=== PATIENT | female | born 1950 | race Caucasian/White ===

== ENCOUNTER → 2017-07-08 16:40 | Outpatient (CLI) | payer MEDICARE, OTHER, SELFPAY ==
--- NOTE | 2017-07-08 | MM_ITS ---
MM Dig SC mamm unilat RT CAD CAD Screening ORDERING PHYSICIAN : Giovanni Toscano PATIENT AGE: 66 years GENDER: Female COMPARISON: Previous mammograms: April 2016, December 2014, November 2013, June 2011 also May 2010 INDICATION: Left mastectomy Routine follow-up screening mammogram. No hormones. No new complaints Family history.: Mother and sister with breast cancer TECHNIQUE: Standard CC and MLO images were obtained. R2 CAD reviewed. FINDINGS: Left mastectomy with Moderate dense breast density at remaining right breast. Slightly decreases sensitivity of mammography RIGHT BREAST:. No prominent findings. No definitive new findings. Area of density at the deep central right breast is fairly similar to 2014 & in 2012 cc view. This feature also becomes lower density & dissipates on the axillary view & MLO view and favor most likely stable asymmetric fibroglandular elements & summation shadow.. I believe it is a stable] feature evaluate previously,, but feature but because the positive personal and family history suggest a follow-up right mammogram in 5-6 months to fully confirm stability to be cautious IMPRESSION: Moderately dense breast . No prominent new findings . Modest focal area of density density at the deep breast on cc views most likely stable feature and seems seems to dissipate on other views. Doubt of significance but be cautious in this patient with strong history, suggest a follow-up right mammogram in 5-6 months to better confirm stable baseline character here. Desiccation reviewed the radiologist prior patiently department as well BI-RADS Category: 3 Benign Finding Short Term Follow-up RECOMMENDED FOLLOW-UP: 6M - 6 MONTH FOLLOW-UP, 5-6 MONTH FOLLOW-UP (A letter has been sent to the patient regarding results of the study.)
== END ==
PROVIDERS: PCP Family Medicine; Visit Provider Family Medicine
DX: Z12.31 Encounter for screening mammogram for malignant neoplasm of breast (principal)
CPT/HCPCS: 77067

== ENCOUNTER → 2019-11-07 17:36 | Outpatient (CLI) | payer MEDICARE, OTHER, SELFPAY | PROVIDERS: Visit Provider Family Medicine | DX: N39.0 Urinary tract infection, site not specified (principal) | CPT/HCPCS: 87086 ==

== ENCOUNTER → 2022-01-13 10:19 | Outpatient (CLI) | payer MEDICARE, OTHER, SELFPAY ==
[2022-01-13 19:25] LABS: Basophils # 0.1 K/mm3 (0-0.2); Basophils % 1.2 % (0.1-2.0); Eosinophils # 0.1 K/mm3 (0.0-0.4); Eosinophils % 1.4 % (0.1-12.0); Hematocrit 42.2 % (37.0-47.0); Hemoglobin 14.3 g/dL (12.2-16.2); Lymphocytes # 1.6 K/mm3 (0.7-4.5); Lymphocytes % 27.4 % (10-50); Mean Corpuscular HGB Conc 33.8 g/dL (31.8-35.4); Mean Corpuscular Hemoglobin 31.8 pg (27.0-31.2); Mean Corpuscular Volume 94.2 fl (81-99); Mean Platelet Volume 9.5 fl (7.4-10.4); Monocytes # 0.6 K/mm3 (0.1-1.0); Monocytes % 9.7 % (1.7-9.3); Neutrophils # 3.5 K/mm3 (1.8-7.8); Neutrophils % 60.3 % (37.0-80.0); Platelet Count 220 K/mm3 (142-424); Red Blood Count 4.48 M/mm3 (4.20-5.40); Red Cell Distribution Width 13.3 % (11.5-17.5); White Blood Count 5.7 K/mm3 (4.8-10.8)
[2022-01-13 19:26] LABS: Alanine Aminotransferase 31 U/L (12-78); Albumin/Globulin Ratio 1.6 (1.1-1.8); Alkaline Phosphatase 90 U/L (38-126); Anion Gap 12.1 mEq/L (5-15); Aspartate Amino Transferase 33 U/L (14-36); Bilirubin,Total 0.3 mg/dl (0.2-1.3); Blood Urea Nitrogen 23 mg/dl (7-17); Calcium 9.1 mg/dl (8.4-10.2); Carbon Dioxide 27 mmol/L (22.0-30.0); Chloride 104 mmol/L (98-107); Chol/HDL Ratio 5.9 (1-3.5); Cholesterol 226 mg/dl (140-200); Estimated Glomerular Filt Rate 82 ml/min (>60); GFR (African American) 99 ML/MIN (>60); Globulin 2.5 g/dL (1.3-3.2); Glucose 121 mg/dl (74-100); HDL Cholesterol 38 mg/dl (40-60); Potassium 4.1 mmoL/L (3.5-5.1); Sodium 139 mmol/L (136-145); Total Protein,Serum 6.5 g/dl (6.3-8.2); Triglycerides 362 mg/dl (30-150); VLDL Cholesterol 72 mg/dL (0-40)
[2022-01-13 19:36] LABS: Direct LDL Cholesterol 121.82 mg/dL (100-129)
== END ==
PROVIDERS: PCP Family Medicine; Visit Provider Family Medicine
DX: S32.599A Other specified fracture of unspecified pubis, initial encounter for closed fracture (principal); Z00.00 Encounter for general adult medical examination without abnormal findings; E78.00 Pure hypercholesterolemia, unspecified
CPT/HCPCS: 80053; 80061; 85025

== ENCOUNTER → 2022-08-20 20:58 | Outpatient (CLI) | payer MEDICARE, OTHER, SELFPAY | PROVIDERS: PCP Family Medicine; Visit Provider Family Medicine | DX: R30.0 Dysuria (principal) | CPT/HCPCS: 87086 ==

== ENCOUNTER → 2023-01-29 23:42 | Outpatient (CLI) | payer MEDICARE, OTHER, SELFPAY ==
[2023-01-29 19:36] LABS: Basophils % 0.5 % (0.1-2.0); Eosinophils # 0.1 K/mm3 (0.0-0.4); Eosinophils % 0.9 % (0.1-12.0); Hematocrit 42.3 % (37.0-47.0); Hemoglobin 14.9 g/dL (12.2-16.2); Lymphocytes # 1.8 K/mm3 (0.7-4.5); Lymphocytes % 28.5 % (10-50); Mean Corpuscular HGB Conc 35.2 g/dL (31.8-35.4); Mean Corpuscular Hemoglobin 33.4 pg (27.0-31.2); Mean Corpuscular Volume 94.9 fl (81-99); Mean Platelet Volume 10.3 fl (7.4-10.4); Monocytes # 0.5 K/mm3 (0.1-1.0); Monocytes % 7.3 % (1.7-9.3); Neutrophils # 3.9 K/mm3 (1.8-7.8); Neutrophils % 62.8 % (37.0-80.0); Platelet Count 204 K/mm3 (142-424); Red Blood Count 4.46 M/mm3 (4.20-5.40); Red Cell Distribution Width 13.3 % (11.5-17.5); White Blood Count 6.2 K/mm3 (4.8-10.8)
[2023-01-29 20:52] LABS: Chloride 105 mmol/L (98-107)
[2023-01-29 20:53] LABS: Potassium 4.4 mmoL/L (3.5-5.1); Sodium 140 mmol/L (136-145)
[2023-01-29 20:55] LABS: Alanine Aminotransferase 33 U/L (12-78); Albumin Level 4.6 g/dl (3.5-5.0); Albumin/Globulin Ratio 1.8 (1.1-1.8); Alkaline Phosphatase 75 U/L (38-126); Anion Gap 12.4 mEq/L (5-15); Aspartate Amino Transferase 31 U/L (14-36); Bilirubin,Total 0.2 mg/dl (0.2-1.3); Blood Urea Nitrogen 18 mg/dl (7-17); Carbon Dioxide 27 mmol/L (22.0-30.0); Cholesterol 239 mg/dl (140-200); Estimated Glomerular Filt Rate 70 ml/min (>60); GFR (African American) 85 ML/MIN (>60); Globulin 2.6 g/dL (1.3-3.2); Total Protein,Serum 7.2 g/dl (6.3-8.2); Triglycerides 227 mg/dl (30-150); VLDL Cholesterol 45 mg/dL (0-40)
[2023-01-29 20:56] LABS: Calcium 9.1 mg/dl (8.4-10.2); Chol/HDL Ratio 5.7 (1-3.5); Glucose 104 mg/dl (74-100); HDL Cholesterol 42 mg/dl (40-60)
[2023-01-29 21:07] LABS: Direct LDL Cholesterol 138.93 mg/dL (100-129)
[2023-01-29 21:30] LABS: Thyroid Stimulating Hormone 0.39 uIU/mL (0.465-4.68)
== END ==
PROVIDERS: Family Medicine; PCP Family Medicine; Visit Provider Family Medicine
DX: S32.599A Other specified fracture of unspecified pubis, initial encounter for closed fracture (principal); Z00.00 Encounter for general adult medical examination without abnormal findings; E78.5 Hyperlipidemia, unspecified; Z79.899 Other long term (current) drug therapy
CPT/HCPCS: 80053; 80061; 84443; 85025

== ENCOUNTER 2023-07-08 10:55 | Outpatient (CLI) | payer MEDICARE, OTHER, SELFPAY ==
[2023-07-08 18:25] LABS: Coronavirus 19, PCR Not Detected (NotDetected); Influenza A, PCR Not Detected (NotDetected); Influenza B, PCR Not Detected (NotDetected)
== END 2023-07-08 23:59 ==
LOC: LAB.DROPOF 07-09 10:55
PROVIDERS: PCP Nurse Practitioner; Visit Provider Nurse Practitioner
DX: J06.9 Acute upper respiratory infection, unspecified (principal); R05.9 Cough, unspecified; R06.2 Wheezing; R09.82 Postnasal drip
CPT/HCPCS: 87636

== ENCOUNTER 2024-10-12 11:50 | Outpatient (CLI) | payer MEDICARE, OTHER, SELFPAY ==
--- OUTSIDE RECORDS SUMMARY | 2024-10-16 11:52 | XMS_ITS | Clinical Summary ---
Author Organization [facility] Address [address] [place] [address] Care Team Providers Care Retail Wireless Sales Representative Name Role Phone Kavin Toscano MD Primary Care Provider [phone] Carlos Lala MD Unavailable [phone] Pat Liu RN Unavailable [phone] Allergies Active Allergy Reactions Criticality Noted Date Comments Sulfamethoxazole-Trimethoprim 2021 Ciprofloxacin 07/23/2021 Contact Metal Agent 07/23/2021 Medications amitriptyline (ELAVIL) 25 mg tablet TAKE 1/2 TO 1 (ONE-HALF TO ONE) TABLET BY MOUTH AT NIGHT TO SUSTAIN SLEEP 06/02/2021 Active eszopiclone (LUNESTA) 3 mg Tablet TAKE 1 TABLET BY MOUTH EVERY DAY AT BEDTIME NEEDED FOR SLEEP 06/03/2021 Active Active Problems Problem Noted Date Diagnosed Date Malignant neoplasm of upper- outer quadrant of left breast in female, estrogen receptor positive 05/06/2005 Cancer Staging:Clinical stage from 05/11/2005:Stage IIA(cT2, cN0(sn), cM0, G2, ER+, IN-, HER2-) - Signed by Carlos Lala MD on 07/23/2021 Social History Tobacco Use Types Packs/Day Years Used Date Smoking Tobacco: Never Smokeless Tobacco: Never Tobacco Cessation:Counseling Given: Yes Alcohol Use Standard Drinks/Week Comments Never 0 (1 standard drink = 0.6 oz pur e alcohol) Comments No Sex and Gender Information Value Date Recorded Sex Assigned at Not on file Legal Sex Female 10:58 AM EST Gender Identity Not on file Sexual Orientation Not on file Last Filed Vital Signs Vital Sign Reading Time Taken Comments Blood Pressure 132/77 11/03/2023 12:12 PM EDT Pulse 86 11/03/2023 12:12 PM EDT Temperature 36.6 C (97.8 F) 11/03/2023 12:12 PM EDT Respiratory Rate 16 11/03/2023 12:1 2 PM EDT Oxygen Saturation 98% 11/03/2023 12: 12 PM EDT Inhaled Oxygen Concentration - - Weight 59.4 kg (131 lb) 11/03/2023 12:1 2 PM EDT Height 159.5 cm (5' 2.8 ) 11/03/2023 12 :12 PM EDT got Ht with no shoes on Body Mass Index 23.36 11/03/2023 12:12 PM EDT Plan of Treatment Upcoming Encounters Date Type Department Care Team (Late st Contact Info) Description 11/01/2024 12:40 PM EDT Appointment [facility] - Hematology & Oncology, [place] [address] [facility] [address] [place] [address] Carlos Lala MD [address] [facility] [place], [place] [address] Health Maintenance Due Date Last Done Comments Lipid Screening 1966 Hepatitis C Virus (HCV) Screening 1969 Pneumococcal Vaccine: 50+ Ye ars (1 of 1 - PCV) 1998 Fall Risk Assessment 2013 Zoster-RZV(Shingrix) (2 of 2) 02/18/2023 12/24/2022 RSV Vaccines (1 - 1-dose 75+ series) 09/01/2023 COVID-19 Vaccine ( - 2023-2 5 season) 2023 Advance Care Planning 03/22/2024 Depression Screening 03/22/2024 Influenza Vaccination (#1) 11/20/202401/29, 01/27/2022, 03/02/2021, Additional history exists Tetanus Vaccination (Every 1 0 Years) 01/05/2027 01/05/2017 Osteoporosis Screening 04/14/2028 , 04/14/2023, 06/02/2019, Additional history exists Breast Cancer Screening Discontinued 02/07/20 22, 02/06/2022, 01/16/2021, Additional history exists Influenza Vaccination (Yearly) Discontinued 1 03/31/2022, 01/27/2022, 03/02/2021, Additional history exists Procedures Procedure Name Priority Date/Time Associated Diagnosis Comments SVB-MCK-[id number] IS SCREENING Routine 02/06/2022 11:09 AM EST KIV-BMEO-CIN SCAN AXIAL SKELETON Routine 03/18/2015 11:10 AM EST from Last 3 Months or Most Recently Relevant to Health Maintenance Results * MCG-PMM-[id number] SCREENING (02/06/2022 11:09 AM EST) 02/06/2022 11:[address] [facility] - 02/06/2022 12:51 PM EST Procedure:MM MAMMO DIGITAL GERMAN SCREEN RIGHT Reason for exam: history of breast cancer, mastectomy. Z12.31-Encounter for screening mammogram for malignant neoplasm of jfptwf-VXQ-57-CM MM MAMMO DIGITAL GERMAN SCREEN RIGHT CC and MLO view(s) were taken of the right breast. The breast tissue is heterogeneously dense. This may lower the sensitivity of mammography. Prior study comparison: Compared with prior studies the most recent being 01/16/21, 12/05/19 Prior left mastectomy. No mammographic evidence of malignancy. IMPRESSION: Negative (FRI-Nwqgcmlk-5) RECOMMENDATION: Routine screening mammogram in 1 year. DISCLAIMER * Any patient with a palpable abnormality, unexplained by breast imaging, should be managed on clinical basis by the attending physician. * Breast imaging has a false negative rate of 15%. * The patient was notified by mail of the results of this examination. *The patient's information was entered into a reminder system with a target due date for the next mammogram, in accordance with the [employer] [place] [employer] and the Society of Breast Imaging recommendations. Procedure Note Provider, Dakot[facility] - 02/06/2022 Procedure:MM MAMMO DIGITAL GERMAN SCREEN RIGHT Reason for exam: history of breast cancer, mastectomy. Z12.31-Encounter for screening mammogram for malignant neoplasm of ixjvze-GZI-44-CM MM MAMMO DIGITAL GERMAN SCREEN RIGHT CC and MLO view(s) were taken of the right breast. The breast tissue is heterogeneously dense. This may lower the sensitivity of mammography. Prior study comparison: Compared with prior studies the most recentbeing 01/16/21, 12/05/19 Prior left mastectomy. No mammographic evidence of malignancy. IMPRESSION: Negative (CJK-Annwtypg-2) RECOMMENDATION: Routine screening mammogram in 1 year. DISCLAIMER * Any patient with a palpable abnormality, unexplained by breast imaging, should be managed on clinical basis by the attending physician. * Breast imaging has a false negative rate of 15%. * The patient was notified by mail of the results of this examination. *The patient's information was entered into a reminder system with a target due date for the next mammogram, in accordance with the [employer] [place] [employer] and the Society of Breast Imaging recommendations. us External Provider [facility]AKOT[facility] IMG RESULTS ONLY Final Result [facility] * FDB-ITSR-SNZ SCAN AXIAL SKELETON (03/18/2015 11:10 AM EST) 03/18/2015 11:[address] [facility] - 03/20/2015 2:21 PM EST Indication: The patient is a post-menopausal female over age 65 with clinical risk factors for an osteoporotic fracture that requires a bone density assessment. Study was performed on [place]. Bone Density: Region BMD T-score Z-score AP Spine (L1-L4) 0.846 -1.8 0.0 Femoral Neck (Left) 0.643 -1.9 -0.3 Total Hip (Left) 0.748 -1.6 -0.3 Femoral Neck (Right) 0.591 -2.3 -0.7 Total Hip (Right) 0.716 -1.9 -0.5 World Health Organization criteria for BMD interpretation classify patients as: Normal (T-score at or above -1.0), Low Bone Density (T-score between -1.0 and -2.5), or Osteoporotic (T-score at or below -2.5). T Scores are reported in Postmenopausal women and in men age 50 and older. Z-scores are reported in females prior to menopause and in males younger than age 50. 10-year Fracture Risk(1): Major Osteoporotic Fracture 11% Hip Fracture 2.1% Reported Risk Factors: [place] (), Neck BMD=0.591, BMI=20.2 (1) FRAX(R) Version 3.01. Fracture probability calculated for an untreated patient. Fracture probability may be lower if the patient has received treatment. Previous Exams: Region Date Age BMD T-score BMD Change AP Spine(L1-L4) 03/18/2015 64 0.846 -1.8 5.3%* 01/23/2013 62 0.803 -2.2 Total Hip(Left) 03/18/2015 64 0.748 -1.6 -0.1% 01/23/2013 62 0.749 -1.6 1.1% 11/10/2010 60 0.741 -1.6 -3.4%# 11/10/2010 60 0.767 -1.4 1.4%# 11/12/2008 58 0.756 -1.5 4.1%* 05/11/2006 55 0.726 -1.8 *Denotes significance at 95% confidence level, site specific LSC for AP Spine = 0.031 g/cm2, site specific LSC for Total Hip = 0.025 g/cm2 BMD is shown in g/cm2 and BMD Change indicates change vs previous BMD Clinical Information Provided by Patient: Has used the following medications: Calcium, Aromatase Inhibitors, Vitamin D, Chemotherapy drugs, arimedex Patient maximum height was 64 Post menopausal woman Has low body mass. Interpretation: Bone mineral density is in the low bone density range. A minimum of two years may be required between bone density studies due to inherent testing precision limitations. Intervals between BMD testing should be determined according to each patient's clinical status: typically one year after initiation or change of therapy is appropriate, with longer intervals once therapeutic effect is established. The spine bone mineral density is significantly increased from the last exam. The left hip bone mineral density is not significantly changed since last exam. Reported by: Marlene Lomeli PA-C, [facility], CCD on 03/18/2015 12:32:00 PM. Procedure Note Provider, External - 03/21/2015 Indication: The patient is a post-menopausal female over age 65 with clinical risk factors for an osteoporotic fracture that requires a bone density assessment. Study was performed on [place]. Bone Density: Region BMD T-score Z-score AP Spine (L1-L4) 0.846 -1.8 0.0 Femoral Neck (Left) 0.643 -1.9 -0.3 Total Hip (Left) 0.748 -1.6 -0.3 Femoral Neck (Right) 0.591 -2.3 -0.7 Total Hip (Right) 0.716 -1.9 -0.5 World Health Organization criteria for BMD interpretation classify patients as: Normal (T-score at or above -1.0), Low Bone Density (T-score between -1.0 and -2.5), or Osteoporotic (T-score at or below -2.5). T Scores are reported in Postmenopausal women and in men age 50 and older. Z-scores are reported in females prior to menopause and in males younger than age 50. 10-year Fracture Risk(1): Major Osteoporotic Fracture 11% Hip Fracture 2.1% Reported Risk Factors: [place] (), Neck BMD=0.591, BMI=20.2 (1) FRAX(R) Version 3.01. Fracture probability calculated for an untreated patient. Fracture probability may be lower if the patient has received treatment. Previous Exams: Region Date Age BMD T-score BMD Change AP Spine(L1-L4) 03/18/2015 64 0.846 -1.8 5.3%* 01/23/2013 62 0.803 -2.2 Total Hip(Left) 03/18/2015 64 0.748 -1.6 -0.1% 01/23/2013 62 0.749 -1.6 1.1% 11/10/2010 60 0.741 -1.6 -3.4%# 11/10/2010 60 0.767 -1.4 1.4%# 11/12/2008 58 0.756 -1.5 4.1%* 05/11/2006 55 0.726 -1.8 *Denotes significance at 95% confidence level, site specific LSC for AP Spine = 0.031 g/cm2, site specific LSC for Total Hip = 0.025 g/cm2 BMD is shown in g/cm2 and BMD Change indicates change vs previous BMD Clinical Information Provided by Patient: Has used the following medications: Calcium, Aromatase Inhibitors, Vitamin D, Chemotherapy drugs, arimedex Patient maximum height was 64 Post menopausal woman Has low body mass. Interpretation: Bone mineral density is in the low bone density range. A minimum of two years may be required between bone density studies due to inherent testing precision limitations. Intervals between BMD testing should be determined according to each patient's clinical status: typically one year after initiation or change of therapy is appropriate, with longer intervals once therapeutic effect is established. The spine bone mineral density is significantly increased from the last exam. The left hip bone mineral density is not significantly changed since last exam. Reported by: Marlene Lomeli PA-C, [facility], CCD on 03/18/2015 12:32:00 PM. us Carlos Lala MD [facility] IMG RESULTS ONL Y Final Result [facility] from Last 3 Months or Most Recently Relevant to Health Maintenance Insurance MEDICARE MEDICARE [facility] Care Teams Retail Wireless Sales Representative Relationship Specialty Start Date End Date Kavin Toscano MD PCP - General Family Medicine 02/21/15 Carlos Lala MD [address] [place] [address] Covering Provider Hematology and Oncology 06/19/21 Pat Liu, RN [address] [place] [address] Oncology Nurse Navigator 06/19/21
--- OUTSIDE RECORDS SUMMARY | 2024-10-16 11:52 | XMS_ITS | Clinical Summary ---
Author Organization [id number] Address [address], [address] [place] [address] Care Team Providers Care Hyperbaric Nurse Name Role Phone Kavin Toscano MD Primary Care Provider [phone] Allergies No known active allergies Active Problems Patient Care Coordination No te Formatting of this note migh t be different from the original. BRENDON [id number] 08/24/17 Problem Noted Date Diagnosed Date Closed displaced fracture of ilium with routine healing 08/23/2017 Insomnia, persistent 08/23/2017 Constipation due to opioid therapy 08/23/2017 Peripheral neuropathy due to chemotherapy 2017 Personal history of malignant neoplasm of breast 05/31/2015 Family history of malignant neoplasm of breast 0 05/31/2015 Medical History Medical History Date Comments Breast cancer (HCC) left mastect jayshree - 2007 History of chemotherapy 2007 Hx of radiation therapy 2006 Family History Medical History Relation Name Comments Breast Cancer Mother Breast Cancer Sister Relation Name Status Comments Mother Sister Social History Tobacco Use Types Packs/Day Years Used Date Smoking Tobacco: Never Assessed Comments No Sex and Gender Information Value Date Recorded Sex Assigned at Not on file Legal Sex Female 7:23 PM EDT Gender Identity Not on file Sexual Orientation Not on file Obstetrics History Para Term AB IAB SAB Ectopic Multiple Livin g Live Births 3 Plan of Treatment Health Maintenance Due Date Last Done Comments Wellness Exam Medicare 09/01/1953 Hepatitis C Screening 1966 DTaP/TDaP/Td (1 - Tdap) 01/06/2017 01/05/2017, 05/25 Pneumococcal Vaccine 50+ (2 of 2 - PCV20 or PCV21) 01/05/2018 01/05/2017, 04/10/2016 Zoster (3 of 3) 02/18/2023 12/24/2022, 02/22/2009 RSV or 60+ (1 - 1-dose 75+ series) 09/01/2023 COVID-19 Vaccine (1 - 2023- season) 2023 Influenza Vaccine (#1) 2024 4, 01/29/2023, 01/27/2022, Additional history exists Bone Density Screening Completed 4, 06/02/2019, 03/18/2015, Additional history exists Hepatitis B Vaccine Aged Out No longe r eligible based on patient's age to complete this topic Meningococcal B Vaccine Aged Out No l onger eligible based on patient's age to complete this topic Procedures Procedure Name Priority Date/Time Associated Diagnosis Comments DX BONE DENSITY AXIAL SKELETON Routine 04/14/2023 1:26 PM EST Age related osteoporosis, unspecified pathological fracture presence from Last 3 Months or Most Recently Relevant to Health Maintenance Results * DX BONE DENSITY AXIAL SKELETON (04/14/2023 1:26 PM EST) Anatomical Region Laterality Modality Dexa Scan 04/14/2023 Impressions 04/15/2023 3:39 PM EST Indication: The patient is a female age 65 or older who requires a bone density assessment. Study was performed on [place]. Bone Density: Region BMD T-score Z-score AP Spine (L1-L4) 0.809 -2.2 0.2 Femoral Neck (Right) 0.610 -2.2 -0.1 Total Hip (Right) 0.693 -2.0 -0.3 World Health Organization criteria for BMD interpretation [...] 50. 10-year Fracture Risk(1): Major Osteoporotic Fracture 13% Hip Fracture 3.6% Reported Risk Factors: [place] (), Neck BMD=0.610, BMI=23.0 (1) FRAX(R) Version 3.08. Fracture probability calculated for an untreated patient. Fracture probability may be lower if the patient has received treatment. Previous Exams: Region Date Age BMD T-score BMD Change AP Spine(L1-L4) 04/14/2023 72 0.809 -2.2 -1.9% 06/02/2019 68 0.825 -2.0 Total Hip(Right) 04/14/2023 72 0.693 -2.0 -3.1% 06/02/2019 68 0.716 -1.9 0.0% 03/18/2015 64 0.716 -1.9 3.3% 05/11/2006 55 0.693 -2.0 *Denotes significance at 95% confidence level, LSC for AP Spine = 0.032g/cm2, LSC for Total Hip = 0.024 g/cm2, LSC for Distal 1/3 Radius = 0.026 g/cm2, site specific LSC for AP Spine = 0.032 g/cm2, site specific LSC for Total Hip = 0.022 g/cm2 BMD is shown in g/cm2 and BMD Change indicates change vs previous BMD Clinical Information Provided by Patient: Has used or is currently using the following medications: Calcium, Aromatase Inhibitors, Vitamin D, Chemotherapy drugs Has had or currently has the following medical conditions: Breast Cancer Patient maximum height was 64.0 Menopause Age: 51 Patient is post menopausal Interpretation: Bone mineral density is in the low bone density range. The spine bone mineral density is not significantly changed since the last exam. The right hip bone mineral density is not significantly changed since the last exam. The National Osteoporosis Foundation recommends treating patients with FRAX scores of greater than or equal to 20% for major osteoporotic fractures or greater than or equal to 3% for hip fracture. The patient's FRAX score does meet the threshold for treatment consideration. FRAX score is included in the body of this report. A minimum of two years may be required between bone density studies due to inherent testing precision limitations. Intervals between BMD testing should be determined according to each patient's clinical status: typically one year after initiation or change of therapy is appropriate, with longer intervals once therapeutic effect is established. Reported by: Glenda Russ PA-C, [facility] on 04/14/2023 1:52:00 PM. us Not In [facility] Provider IMG DEXA ORDERABLES Final R esult from Last 3 Months or Most Recently Relevant to Health Maintenance Insurance MEDICARE [place] PART A AND B Member Subscriber Plan / Payer (Ef fective 2013-Present) Name:[place] Member ID:[id number] Relation to Subscriber:Self Name:[place] Subscriber ID:[id number] Payer ID:Not on file Group ID:Not on file Type:Not on file Address: [address] MEDICARE [place] PART A AND B Member Subscriber Plan / Payer (Ef fective 2013-Present) Name:[place] Member ID:[id number] Relation to Subscriber:Self Name:[place] Subscriber ID:[id number] Payer ID:Not on file Group ID:Not on file Type:Not on file Address: [address] Care Teams Hyperbaric Nurse Relationship Specialty Start Date End Date Kavin Toscano MD PCP - General Family Medicine 08/12/17
--- OUTSIDE RECORDS SUMMARY | 2024-10-16 11:52 | XMS_ITS | Clinical Summary ---
Author Organization [facility] Address [address] [place] [address] Care Team Providers Care Compliance Vice President Name Role Phone Unavailable Primary Care Provider Unavailabl e Source Comments This information has been disclosed to you from confidential records protectedfrom disclosure by state law. You shall make no further disclosure of thisinformation without the specific, written, and informed release of theindividual to whom it pertains, or as otherwise permitted by law. A generalauthorization for the release of medical or other information is not sufficientfor the purposes of therelease of HIV test results or diagnoses. [id number] Social History Tobacco Use Types Packs/Day Years Used Date Smoking Tobacco: Never Assessed Comments Unknown Sex and Gender Information Value Date Recorded Sex Assigned at Not on file Legal Sex Female 9:55 PM EST Gender Identity Not on file Sexual Orientation Not on file Plan of Treatment Not on file Insurance MEDICARE A AND B [employer]
--- OUTSIDE RECORDS SUMMARY | 2024-10-16 11:52 | XMS_ITS | Clinical Summary ---
Author Organization [facility] Address [facility] [place] [address] Care Team Providers Care Sewing Machine Bobbin Winder Name Role Phone Kavin Toscano MD Primary Care Provider [phone] Social History Tobacco Use Types Packs/Day Years Used Date Smoking Tobacco: Never Assessed Comments Unknown Sex and Gender Information Value Date Recorded Sex Assigned at Not on file Legal Sex Female 7:33 PM EDT Gender Identity Not on file Sexual Orientation Not on file Plan of Treatment Health Maintenance Due Date Last Done Comments [facility]-Bone Density Scan 1950 [facility]-Depression Screening 1950 [facility]-/Child/Adol SDOH Screenings 1950 [facility]- SDOH Screenings 1966 [facility]-Adult SDOH Screenings 1966 [facility]-Zoster Vaccines (2 of 3) 04/19/2009 02/22/2009 [facility]-DTaP,Tdap,and Td Vaccines (1 - Tdap) 01/06/2017 01/05/2017, 05/25/1996 [facility]-Pneumococcal Vaccine: 50+ Years (2 of 2 - PPSV23) 04/10/2017 04/10/2016 [facility]-RSV Vaccine: 60+ Years or (1 - 1-dose 75+ series) 09/01/2023 RJL-RERLE-28 Vaccine ( - 2023- season) 2023 [facility]-Influenza Vaccine (#1) 11/20/202403/02, 04/10/2016 HPV Vaccines Aged Out No longer eligi ble based on patient's age to complete this topic [facility]-HIB Vaccines Aged Out No longer e ligible based on patient's age to complete this topic [facility]-Hepatitis A Vaccines Aged Out No longer eligible based on patient's age to complete this topic [facility]-IPV Vaccines Aged Out No longer e ligible based on patient's age to complete this topic [facility]-Rotavirus Vaccines Aged Out No lo nger eligible based on patient's age to complete this topic Care Teams Sewing Machine Bobbin Winder Relationship Specialty Start Date End Date Kavin Toscano MD PCP - General 04/22/21
== END 2024-10-12 23:59 ==
LOC: LAB.DROPOF 10-16 11:51
PROVIDERS: PCP Family Medicine; Visit Provider Family Medicine
DX: R30.0 Dysuria (principal)
CPT/HCPCS: 87086

== ENCOUNTER 2025-02-12 22:22 | Emergency (ER) | payer MEDICARE, OTHER, SELFPAY ==
--- OUTSIDE RECORDS SUMMARY | 2025-02-12 22:32 | XMS_ITS | Clinical Summary ---
Author Organization [id number] Address [address] [facility], [address] [place] [address] Care Team Providers Care Master Printer Name Role Phone Kavin Toscano MD Primary Care Provider [phone] Allergies No known active allergies Active Problems Patient Care Coordination No te Formatting of this note migh t be different from the original. BRENDON [id number] 08/24/17 Problem Noted Date Diagnosed Date Closed [...] 75+ series) 09/01/2023 COVID-19 Vaccine (1 - 2024- season) 2024 Influenza Vaccine (#1) 2024 4, 01/29/2023, 01/27/2022, [...] bone density assessment. Study was performed on [employer]. Bone Density: Region BMD T-score Z-score AP [...] is established. Reported by: Glenda Russ PA-C, [facility] on 04/14/2023 1:52:00 PM. us Not In [facility] Provider IMG DEXA ORDERABLES Final R esult from Last 3 Months or Most Recently Relevant to Health Maintenance Insurance MEDICARE [place] PART A AND B Member Subscriber Plan / Payer (Ef fective 2013-Present) Name:Guanakito Hill Member ID:[id number] Relation to Subscriber:Self Name:Guanakito Hill Subscriber ID:[id number] Payer ID:Not on file Group ID:Not on file Type:Not on file Address: [address] MEDICARE [place] PART A AND B Member Subscriber Plan / Payer (Ef fective 2013-Present) Name:Guanakito Hill Member ID:[id number] Relation to Subscriber:Self Name:Guanakito Hill Subscriber ID:[id number] Payer ID:Not on file Group ID:Not on file Type:Not on file Address: [address] Care Teams Master Printer Relationship Specialty Start Date End Date Kavin Toscano MD PCP - General Family Medicine 08/12/17
--- OUTSIDE RECORDS SUMMARY | 2025-02-12 22:32 | XMS_ITS | Clinical Summary ---
Author Organization [facility] Address [address] [place] [address] Care Team Providers Care Knockdown Man Name Role Phone Kavin Toscano MD Primary Care Provider [phone] Carlos Lala MD Unavailable [phone] Pat Liu RN Unavailable [phone] Allergies Active Allergy Reactions Criticality Noted Date Comments Sulfamethoxazole-Trimethoprim 2021 Ciprofloxacin 07/23/2021 Contact Metal Agent 07/23/2021 Medications amitriptyline (ELAVIL) 25 mg tablet 06/02/2021 Active eszopiclone (LUNESTA) 3 mg Tablet 06/03/2021 Active montelukast (SINGULAIR) 10 mg Tablet Take 10 mg by mouth daily. 10/14/2024 Active Active Problems Problem Noted Date Diagnosed Date Malignant neoplasm of upper- outer quadrant of left breast in female, estrogen receptor positive 05/06/2005 Cancer Staging:Clinical stage from 05/11/2005:Stage IIA(cT2, cN0(sn), cM0, G2, ER+, WA-, HER2-) - Signed by Carlos Lala MD on 07/23/2021 Social History Tobacco Use Types Packs/Day Years Used Date Smoking Tobacco: Never Smokeless Tobacco: Never Tobacco Cessation:Counseling Given: Not Answered Alcohol Use Standard Drinks/Week Comments Never 0 (1 standard drink = 0.6 oz pur e alcohol) Comments No Sex and Gender Information Value Date Recorded Sex Assigned at Not on file Legal Sex Female 10:58 AM EST Gender Identity Not on file Sexual Orientation Not on file Last Filed Vital Signs Vital Sign Reading Time Taken Comments Blood Pressure 134/83 11/08/2024 12:11 PM EDT Pulse 90 11/08/2024 12:11 PM EDT Temperature 37 C (98.6 F) 11/08/2024 12:11 PM EDT Respiratory Rate 16 11/03/2023 12:12 PM EDT Oxygen Saturation 98% 11/08/2024 12:11 PM EDT Inhaled Oxygen Concentration - - Weight 59.5 kg (131 lb 2.8 oz) 11/08/2024 12:11 PM EDT Height 159.5 cm (5' 2.8 ) 11/08/2024 12:11 PM ED T Body Mass Index 23.39 11/08/2024 12:11 PM EDT Plan of Treatment Upcoming Encounters Date Type Department Care Team (Late st Contact Info) Description 11/07/2025 1:00 PM EDT Appointment [facility] Physicians - Hematology & Oncology, [place] [address] [facility] [place] [address] [place] [address] Carlos Lala MD [address] [facility]. [address] [place], [place] [id number] Health Maintenance Due Date Last Done Comments Lipid Screening 1966 Tetanus Vaccination (Every 1 0 Years) 1966 Hepatitis C Virus (HCV) Screening 1969 Pneumococcal Vaccine: 50+ Ye ars (1 of 1 - PCV) 1998 Fall Risk Assessment 2013 Zoster-RZV(Shingrix) (2 of 2) 02/18/2023 12/24/2022 RSV Vaccines (1 - 1-dose 75+ series) 09/01/2023 Advance Care Planning 03/22/2024 Depression Screening 03/22/2024 COVID-19 Vaccine (1 - 2024-2 6 season) 2024 Influenza Vaccination (#1) 11/20/202402/22, 03/02/2021, 12/26/2019, Additional history exists Osteoporosis Screening 04/14/2028 4, 04/14/2023, 06/02/2019, Additional history exists Breast Cancer Screening Discontinued 02/07/20 22, 02/06/2022, 01/16/2021, Additional history exists Influenza Vaccination (Yearly) Discontinued 1 04/25/2023, 03/02/2021, 12/26/2019, Additional history exists Procedures Procedure Name Priority Date/Time Associated Diagnosis Comments TER-XSA-CGUJZNQXJJQ IS SCREENING Routine 02/06/2022 11:09 AM EST HEM-HMYX-YYK SCAN AXIAL SKELETON Routine 03/18/2015 11:10 AM EST from Last 3 Months or Most Recently Relevant to Health Maintenance Results * VBI-IWD-JQFDYRBFQYVEE SCREENING (02/06/2022 11:09 AM EST) 02/06/2022 11:[address] [facility] - 02/06/2022 12:51 PM EST Procedure:MM MAMMO DIGITAL GERMAN SCREEN RIGHT Reason for exam: history of breast cancer, mastectomy. Z12.31-Encounter for screening mammogram for malignant neoplasm of nbysza-SRA-70-CM MM MAMMO DIGITAL GERMAN SCREEN RIGHT CC and MLO view(s) were taken of the right breast. The breast tissue is heterogeneously dense. This may lower the sensitivity of mammography. Prior study comparison: Compared with prior studies the most recent being 01/16/21, 12/05/19 Prior left mastectomy. No mammographic evidence of malignancy. IMPRESSION: Negative (GWM-Rokmqyjk-6) RECOMMENDATION: Routine screening mammogram in 1 year. [...] the next mammogram, in accordance with the [employer] and the Society of Breast Imaging recommendations. Procedure Note Provider, [place] - 02/06/2022 Procedure:MM MAMMO DIGITAL GERMAN SCREEN RIGHT Reason for exam: history of breast cancer, mastectomy. Z12.31-Encounter for screening mammogram for malignant neoplasm of htjpkh-MJO-13-CM MM MAMMO DIGITAL GERMAN SCREEN RIGHT CC and MLO view(s) were taken of the right breast. The breast tissue is heterogeneously dense. This may lower the sensitivity of mammography. Prior study comparison: Compared with prior studies the most recentbeing 01/16/21, 12/05/19 Prior left mastectomy. No mammographic evidence of malignancy. IMPRESSION: Negative (JDK-Rerzjznf-6) RECOMMENDATION: Routine screening mammogram in 1 year. [...] the next mammogram, in accordance with the [employer] and the Society of Breast Imaging recommendations. External Provider [facility] IM RESULTS ONLY Final Result [facility] * DGM-NMQG-INR SCAN AXIAL SKELETON (03/18/2015 11:10 AM EST) 03/18/2015 11:[address] [facility] - 03/20/2015 2:21 PM EST Indication: The patient is a post-menopausal female over age 65 with clinical risk factors for an osteoporotic fracture that requires a bone density assessment. Study was performed on [employer]. Bone Density: Region BMD T-score Z-score AP [...] last exam. Reported by: Marlene Lomeli PA-C, [facility], CCD on 03/18/2015 12:32:00 PM. Procedure Note Provider, External - 03/21/2015 Indication: The patient is a post-menopausal female over age 65 with clinical risk factors for an osteoporotic fracture that requires a bone density assessment. Study was performed on [employer]. Bone Density: Region BMD T-score Z-score AP [...] last exam. Reported by: Marlene Lomeli PA-C, M[facility], CCD on 03/18/2015 12:32:00 PM. Carlos Lala MD [facility] IMG RESULTS ONL Y Final Result [facility] from Last 3 Months or Most Recently Relevant to Health Maintenance Insurance MEDICARE MEDICARE Member Subscriber Plan / Payer (Ef fective 2013-Present) Name:Guanakito Rosario Member ID:[id number] Relation to Subscriber:Self Name:Guanakito Rosario Subscriber ID:[id number] Payer [place]:[id number] Group ID:Not on file Type:Medicare Address: [facility] [address] PART A [facility] [place] [address] [place] [address] [facility] Care Teams Knockdown Man Relationship Specialty Start Date End Date Kavin Toscano MD PCP - General Family Medicine 02/21/15 Carlos Lala MD [address] [place] [address] Covering Provider Hematology and Oncology 06/19/21 Pat Liu, RN [address] [place] [address] Oncology Nurse Navigator 06/19/21
--- OUTSIDE RECORDS SUMMARY | 2025-02-12 22:32 | XMS_ITS | Clinical Summary ---
Author Organization [facility] Address [address] [place] [address] Care Team Providers Care Executive Casino Host Name Role Phone Unavailable Primary Care Provider [...] therelease of HIV test results or diagnoses. [id number] Health Encounters Date Type Department Care Team Description 12/28/2024 Orders Only [facility] [address] [place] [address] Kenney Rainey MD Neoplasm of uncertain behavior of skin (Primary Dx) from Last 3 Months Social History Tobacco Use Types Packs/Day Years Used Date Smoking Tobacco: Never Assessed Comments Unknown Sex and Gender Information Value Date Recorded Sex Assigned at Not on file Legal Sex Female 9:55 PM EST Gender Identity Not on file Sexual Orientation Not on file Plan of Treatment Not on file Procedures Procedure Name Priority Date/Time Associated Diagnosis Comments SKIN / NAIL BIOPSY Routine 12/27/2024 12 :00 AM EDT Neoplasm of uncertain behavior of skin from Last 3 Months Results * Skin / nail biopsy (12/27/2024 12:00 AM EDT) 12/27/2024 12/28/2024 Narrative [facility] - 12/27/2024 12:00 AM EDT CASE: [id number] PATIENT: GUANAKITO ROSARIO Clinical Impression: DN Site(s): L buttocks CPT Code(s): 92762 X 1 Diagnosis: Junctional nevus with moderate atypia (margins are free of tumor in the plane of sectioning). Microscopic Exam: There are nests of nevus cells at the dermal-epidermal junction. In addition, there is lentiginous melanocytic hyperplasia, moderate cytologic atypia of junctional melanocytes, fibrosis of the papillary dermis and an infiltrate of lymphocytes and melanophages. Gross Description: A specimen of skin was received measurin x 7 x 1 mm Final Diagnosis performed by Nicole Collins MD Electronically signed 12/29/2024 11:23:40 AM The Pathologist signing this report is located at [facility], [address] [place], [place] [address]in [place], [address], , CLIA ID: [id number] Kenney Rainey MD DERM PROCEDURE ORDERABLES Final Result [facility] from Last 3 Months Insurance MEDICARE A AND B GENERIC COMMERCIAL
--- OUTSIDE RECORDS SUMMARY | 2025-02-12 22:32 | XMS_ITS | Encounter Summary ---
Author Organization [facility] Address [address] [place] [address] Care Team Providers Care Tool And Die Designer Name Role Phone Unavailable Primary Care Provider Unavailabl e Source Comments This information has been disclosed to you from confidential records protectfrom disclosure by state law. You shall make no further disclosure of thisinformation without the specific, written, and informed release of theindividual to whom it pertains, or as otherwise permitted by law. A generalauthorization for the release of medical or other information is not sufficientfor the purposes of the release of HIV test results or diagnoses. [id number] Health Encounter Details Date Type Department Care Team (Late st Contact Info) Description 12/28/2024 Orders Only [facility]ENCE [facility] [address] [place] [address] [place] [id number] [place] [place] [id number] Neoplasm of uncertain behavior of skin (Primary Dx) Social History Tobacco Use Types Packs/Day Years Used Date Smoking Tobacco: Never Assessed Comments Unknown Sex and Gender Information Value Date Recorded Sex Assigned at Not on file Legal Sex Female 9:55 PM EST Gender Identity Not on file Sexual Orientation Not on file documented as of this encounter Plan of Treatment Not on file documented as of this encounter Procedures Procedure Name Priority Date/Time Associated Diagnosis Comments SKIN / NAIL BIOPSY Routine 12/27/2024 12 :00 AM EDT Neoplasm of uncertain behavior of skin documented in this encounter Results * Skin / nail biopsy (12/27/2024 12:00 AM EDT) 12/27/2024 12/28/2024 Narrative [facility] - 12/27/2024 12:00 AM EDT CASE: [id number] PATIENT: GUANAKITO HILL Clinical Impression: DN Site(s): L buttocks CPT Code(s): 95058 X 1 Diagnosis: Junctional nevus with moderate [...] Pathologist signing this report is located at [facility], [address] [place] [address], [address], , CLIA ID: [id number] Kenney Rainey MD DERM PROCEDURE ORDERABLES Final Result [facility] documented in this encounter Visit Diagnoses Diagnosis Neoplasm of uncertain behavior of skin- Primary documented in this encounter
--- OUTSIDE RECORDS SUMMARY | 2025-02-12 22:32 | XMS_ITS | Clinical Summary ---
Author Organization [facility] Address [facility] [place] [address] Care Team Providers Care Computer Systems Manager Name Role Phone Kavin Toscano MD Primary Care Provider [phone] Social History Tobacco Use Types Packs/Day Years [...] Vaccine: 50+ Years (2 of 2 - PCV20 or PCV21) 04/10/2017 04/10/2016 [facility]-RSV Vaccine: 60+ Years or (1 - 1-dose 75+ series) 09/01/2023 [id number] Vaccine (1 - 2024- season) 2024 UKY-Influenza Vaccine (#1) 11/20/202403/02, 04/10/2016 HPV Vaccines [...] age to complete this topic Care Teams Computer Systems Manager Relationship Specialty Start Date End Date Kavin Toscano MD PCP - General 04/22/21
[2025-02-12 22:35] VITALS: BP 182/90; PULSE 95; RESP 20; TEMP 36.8; O2SAT 95; BMI 23.0
--- NOTE | 2025-02-12 22:41 | CT_ITS ---
PROCEDURE INFORMATION: Exam: CT Abdomen And Pelvis With Contrast Exam date and time: 02/12/2025 11:20 PM Age: 74 years old Clinical indication: Abdominal pain; Additional info: Llq pain, hematuria TECHNIQUE: Imaging protocol: Computed tomography of the abdomen and pelvis with contrast. Radiation optimization: All CT scans at this facility use at least one of these dose optimization techniques: automated exposure control; mA and/or kV adjustment per patient size (includes targeted exams where dose is matched to clinical indication); or iterative reconstruction. Contrast material: ISOVUE; Contrast volume: 75 ml; Contrast route: IV; COMPARISON: No relevant prior studies available. FINDINGS: Lungs: No acute finding. Diaphragm: A small hiatal hernia is present. Liver: There is hepatic steatosis. Gallbladder and biliary ducts: Normal. No calcified stones. No ductal dilation. Pancreas: Normal. No ductal dilation. Spleen: Normal. No splenomegaly. Adrenal glands: Normal. No mass. Kidneys and ureters: There is a 2 mm distal left ureteral calculus at the upper sacral level noted on image 76 series 3 causing mild hydroureteronephrosis and significant perinephric stranding. The right kidney and ureter are unremarkable allowing for the small cortical cyst. Stomach and bowel: There is sigmoid diverticulosis without acute inflammation. No bowel obstruction. No mucosal thickening. Appendix: No evidence of appendicitis. Intraperitoneal space: Unremarkable. No free air. No significant fluid collection. Vasculature: There is rmwd-fj-cvrqxeuh calcific atherosclerotic disease. No aortic aneurysm. Lymph nodes: Unremarkable. No enlarged lymph nodes. Urinary bladder: Unremarkable as visualized. Reproductive: Unremarkable as visualized. Bones/joints: There are moderate degenerative changes at L5-S1. No acute fracture. Soft tissues: There is evidence of left mastectomy. IMPRESSION: 1. Obstructing 2 mm distal left ureteral calculus level causing mild hydronephrosis and significant perinephric stranding. 2. Other nonurgent findings as noted. COMMENTS: Consistent with the [employer]'s Incidental Findings Committee white paper (J Am Erica Radiol 2018): Any incidental renal lesion less than 1 cm or classified as too small to characterize, or any incidental cystic renal lesion characterized as simple-appearing, is likely benign. No follow-up imaging is recommended for these lesions per consensus recommendations based on imaging criteria.
--- NOTE | 2025-02-12 22:42 | ED_ITS ---
Discharge Plan Disposition Patient Disposition: Home, Self-Care Prescriptions Prescriptions: New ondansetron HCl 4 mg tablet 4 mg PO Q8H PRN (Reason: nausea and vomiting) 5 Days Qty: 30 0RF tamsulosin 0.4 mg capsule 0.4 mg PO DAILY Qty: 30 0RF oxycodone 5 mg tablet 5 mg PO Q8H PRN (Reason: pain) Qty: 12 0RF No Action amitriptyline 25 mg tablet See Rx Instructions .ROUTE .COMPLEX Qty: 60 5RF Dose Instruction: TAKE 1/2 (ONE-HALF) TO 1 TABLET BY MOUTH AT NIGHT TO SUSTAIN SLEEP Rx Instructions: TAKE 1/2 (ONE-HALF) TO 1 TABLET BY MOUTH AT NIGHT TO SUSTAIN SLEEP eszopiclone 3 mg tablet 3 mg PO QHS PRN (Reason: sleep) Qty: 30 5RF meclizine 25 mg tablet 25 mg PO TID Qty: 90 0RF montelukast 10 mg tablet 10 mg PO DAILY Qty: 30 11RF Referrals Follow up/Referrals: Kavin Toscano MD [Primary Care Provider, Family Practice] - See instructions Activity Restrictions/Add. Instructions Additional Instructions/Restrictions: Please follow-up with your primary care provider and with urologist. If you develop any signs of urinary infection, please get seen immediately. Please take medications as prescribed. Please return to the emergency department if you develop any new or worsening symptoms or become concerned for your health. Clinical Impressions Clinical Impression: Hydronephrosis with ureteral calculus, Rupture of renal pelvis, Acute flank pain Instructions Patient Instructions: DI for Acute Abdominal Pain Print Language Print Language: Kyrgyz Discharge ED Provider: Jefry Eastman General Adult HPI <Jefry Eastman MD - Last Filed: 02/12/25 23:32> General Chief complaint: Abdominal Pain Stated complaint: Pain in pelvic area and blood in urine Time Seen by Provider: 02/12/25 22:28 Mode of Arrival: Wheelchair Source of Information: Patient Description of Symptoms (Recalled from ER Triage Doc. by RN): patient states she noticed blood in her urine on Wednesday and today started with left sided pelvic pain. Denies N/V/D. History of Present Illness HPI narrative: Laina Rosario is a 74-year-old with a previous history of breast cancer status postmastectomy, tubal ligation who presents to the emergency department for complaints of hematuria and lower abdominal pain. Patient states that yesterday, she noticed blood in her urine but no pain with urination. Today, she started to have sharp, constant left lower quadrant abdominal pain. She states that the pain is not worse with urination. She denies any constipation, diarrhea, nausea or vomiting or chest pain. Patient states that nothing this is never happened before. Related Data Previous Rx's ?Medication ?Instructions ?Recorded amitriptyline 25 mg tablet See Rx Instructions .Route 10/12/24 .COMPLEX #60 tabs eszopiclone 3 mg tablet 3 mg PO QHS PRN sleep #30 ta bs 10/12/24 meclizine 25 mg tablet 25 mg PO TID #90 tabs montelukast 10 mg tablet 10 mg PO DAILY #30 tabs 09/20 07/14 ondansetron HCl 4 mg tablet 4 mg PO Q8H PRN nausea and 02/13/25 vomiting 5 days #30 tabs oxycodone 5 mg tablet 5 mg PO Q8H PRN pain #12 tab s 02/13/25 tamsulosin 0.4 mg capsule 0.4 mg PO DAILY #30 caps Allergies Allergy/AdvReac Type Severity Reaction Status Date / Time ciprofloxacin (From Cipro) Allergy Verified 10/12/24 10:51 sulfamethoxazole (From Allergy Verified 10/12/24 10:51 Bactrim) trimethoprim (From Bactrim) Allergy Verified 10/12/24 10:51 PFSH <Jefry Eastman MD - Last Filed: 02/12/25 23:32> PFS Disclaimer: The information contained in this section may have been updated after the patient was seen, as this information can be updated by other users. Medical History Vertigo Insomnia History of breast cancer Pubic ramus fracture Surgical History Hx of tubal ligation Detached retina Hx of mastectomy Family History Other Cancer Social History (Updated 10/12/24 @ 10:50 by Carla Pena MA) Smoking Status: Never smoker alcohol intake: never substance use type: denies use current occupational status: retired Travel in the last 8 weeks?: None housing: house Have you lived/traveled outside [place] in past 30 days?: No Contact w/someone who lives/traveled outside US past 30 days?: No Exposure to someone with infectious disease in past 14 days?: No Do you have a fever (greater than 100.4 F or 38 C)?: No Have you tested positive for COVID-19?: No Exposed to someone with COVID-19 in past 14 days?: No Do you have a sore throat?: No Do you have a cough?: No Do you have any weakness?: No Do you have any diarrhea?: No Are you experiencing any unusual bleeding?: No Do you have any muscle aches/pain?: No Do you have any abdominal pain?: No Are you experiencing loss of taste or smell?: No Other Medical History Have you received the Pneumonia Vaccine: Yes <Jefry Eastman MD - Last Filed: 02/12/25 23:32> ROS Obtained: Yes Systems reviewed as appropriate & no additional complaints except as documented Physical Exam <Jefry Eastman MD - Last Filed: 02/12/25 23:32> General General appearance: alert and in no apparent distress Head Head exam: atraumatic Eye Eye exam: Present normal appearance ENT ENT exam: Present normal external ear exam Neck Neck exam: Present full ROM Chest Chest inspection: Present symmetric chest wall rise Respiratory Respiratory exam: Present normal lung sounds bilaterally; Absent respiratory distress, wheezes or stridor Cardiovascular Cardiovascular exam: Present regular rate and normal rhythm Abdominal Exam Abdominal exam: Present soft, tenderness (LLQ abdominal tenderness ) and guarding (LLQ); Absent distention or rigidity Extremities Exam Extremities exam: Present normal inspection Back Exam Back exam: Present normal inspection Neurological Exam Neurological exam: Present alert and oriented X3 Psychiatric Psychiatric exam: Present normal affect Skin Skin exam: Present warm and dry Medical Decision Making <Jefry Eastman MD - Last Filed: 02/12/25 23:32> Medical Records Screening: Per USPSTF and CDC recommendations, given the prevalence of disease in our region, it is our hospital?s policy to screen for HIV and viral Hepatitis for all patients aged 18 and over and those with ongoing risk factors. Castillo Inquiry Pt receiving controlled substance: No Vital Signs: 02/12/25 22:35 Temperature 98.2 F Temperature Source Oral Pulse Rate [Left] 95 H Respiratory Rate 20 Blood Pressure [Right Arm] 182/90 H Blood Pressure Mean [Right Arm] 120 Blood Pressure Source [Right Arm] Automatic Cuff Blood Pressure Position [Right Arm] Sitting 02 Sat by Pulse Oximetry 95 Oxygen Delivery Method Room Air Lab Data Lab Results 02/12/25 22:31: Urine Color Yellow, Urine Appearance Sl cloudy, Urine pH 6.5, Ur Specific [place] 1.020, Urine Protein Trace, Urine Glucose (UA) Negative, Urine Ketones 1+, Urine Blood 3+ A, Urine Nitrate Negative, Urine Bilirubin Negative, Urine Urobilinogen 0.2, Ur Leukocyte Esterase Trace, Urine RBC Tntc, Urine WBC 10-20, Ur Squamous Epith Cells 3-5, Calcium Oxalate Crystal Trace, Urine Bacteria 2+, Urine Mucus 1+ 02/12/25 22:35: WBC 15.8 H, RBC 4.72, Hgb 15.2, Hct 43.3, MCV 91.7, MCH 32.2 H, MCHC 35.1, RDW 12.2, Plt Count 252, MPV 10.8 H, Neut % (Auto) 79.1, Lymph % (Auto) 13.3, [place] % (Auto) 6.8, Eos % (Auto) 0.2, Baso % (Auto) 0.2, Neut # (Auto) 12.5 H, Lymph # (Auto) 2.1, [place] # (Auto) 1.1 H, Eos # (Auto) 0.0, Baso # (Auto) 0.0, PT 10.6, INR 0.95, Sodium 143, Potassium 3.7, Chloride 104, Carbon Dioxide 23, Anion Gap 19.7 H, BUN 27 H, Creatinine 1.10 H, Estimated Creat Clear 41, Estimated GFR 48 L, Est GFR ( Amer) 58 L, Glucose 158 H, Calcium 9.5, Total Bilirubin 0.6, AST 34, ALT 35, Alkaline Phosphatase 75, Total Protein 7.9, Albumin 4.9, Globulin 3.0, Albumin/Globulin Ratio 1.6, Lipase 159 02/12/25 22:50: Lactate 3.0 H 02/13/25 01:46: Urine Color Yellow, Urine Appearance Clear, Urine pH 8.0, Ur Specific [place] 1.010, Urine Protein Negative, Urine Glucose (UA) Negative, Urine Ketones 1+, Urine Blood 1+ A, Urine Nitrate Negative, Urine Bilirubin Negative, Urine Urobilinogen 0.2, Ur Leukocyte Esterase Negative, Urine RBC 10- 20, Urine WBC Occasional, Urine Bacteria Trace 02/12/25 22:35 02/12/25 22:35 Orders (Tests/Meds): ED MEDICATIONS Generic Name Dose Route Start Last Admin Trade Name Brooks PRN Reason Stop Dose Admin Oxycodone HCl 5 mg 02/13/25 02:49 Oxycodone 5mg Immediate Release Tablet PO 02/13/25 02:50 ONCE ONE Sodium Chloride 10 ml 02/12/25 23:26 02/12/25 23:27 Sodium Chloride 0.9% 10ml Syr (Rad Only) IV 03/14/25 23:25 10 ml NEEDED PRN Administration Maintain IV Site Tamsulosin HCl 0.4 mg 02/13/25 21:00 Tamsulosin 0.4mg Capsule PO 03/15/25 20:59 HS RENE Discontinued Medications Generic Name Dose Route Start Last Admin Trade Name Brooks PRN Reason Stop Dose Admin Ceftriaxone Sodium 1 gm/ 50 mls @ 100 mls/hr 02/13/25 00:49 02/13/25 01:24 Sodium Chloride IV 02/13/25 01:18 100 mls/hr ONCE ONE Administration Iopamidol 75 ml 02/12/25 23:26 02/12/25 23:26 Iopamidol-370 (76%);100ml Bottle IV 02/12/25 23:27 75 ml ONCE ONE Administration Morphine Sulfate 4 mg 02/12/25 22:41 02/12/25 22:52 Morphine 4mg/Ml Syringe IV 02/12/25 22:42 4 mg ONCE ONE Administration Morphine Sulfate 4 mg 02/13/25 00:23 02/13/25 00:47 Morphine 4mg/Ml Syringe IV 02/13/25 00:24 4 mg ONCE ONE Administration Ondansetron HCl 4 mg 02/12/25 23:14 02/12/25 23:21 Ondansetron 4mg/2ml Vial IV 02/12/25 23:15 4 mg ONCE ONE Administration Ondansetron HCl 4 mg 02/13/25 00:45 02/13/25 00:47 Ondansetron 4mg/2ml Vial IV 02/13/25 00:46 4 mg ONCE ONE Administration ORDERS Category Date Time Status CT abdomen pelvis w con Stat Cat Scan 02/12/25 22:[address] abdomen pelvis wo con Stat Cat Scan 02/13/25 00:17 Completed CBC w/Auto Diff [Complete Blood Count Auto Diff] Stat Lab 02/12/25 22:35 Completed CMP [Comprehensive Metabolic Panel] Stat Lab 02/12/25 22:35 Completed Lactic Acid Stat Lab 02/12/25 22:50 Completed Lipase Stat Lab 02/12/25 22:35 Completed PT INR [Prothrombin Time INR] Stat Lab 02/12/25 22:35 Completed UA [Urinalysis and Microscopic] Stat Lab 02/12/25 22:31 Completed UA [Urinalysis and Microscopic] Stat Lab 02/13/25 01:46 Completed Blood Culture Stat Micro 02/13/25 00:41 Received Urine Culture Stat Micro 02/12/25 22:31 Received Medical Decision Narrative: Laina Rosario is a 74-year-old with a previous history of breast cancer status postmastectomy, tubal ligation who presents to the emergency department for complaints of hematuria and lower abdominal pain. Patient states that yesterday, she noticed blood in her urine but no pain with urination. Today, she started to have sharp, constant left lower quadrant abdominal pain. She states that the pain is not worse with urination. She denies any constipation, diarrhea, nausea or vomiting or chest pain. Patient states that nothing this is never happened before. On arrival, patient is hypertensive, borderline tachycardic, afebrile, oxygen saturation appropriate for room air. Physical exam, stated above, revealed nontoxic-appearing female who is uncomfortable. Cardiopulmonary exam without murmurs, rubs, wheezing, rales or rhonchi. She has some tenderness in the left lower quadrant with guarding but no peritonitis or rebound tenderness. Differential diagnosis includes, but is not limited to: Diverticulitis, ureterolithiasis, UTI/pyelonephritis, bowel obstruction, among others. The most morbid conditions were considered and workup was based on these. Workup in the Emergency Department included: CT abdomen pelvis with IV contrast, CBC with differential, CMP, urinalysis, lipase, lactic acid. Patient was initially treated with 4 mg of IV morphine. Patient did have some vomiting in the emergency department given 4 mg of IV Zofran. At this time, patient's workup shows leukocytosis with white blood cell count of 15.8, hemoglobin and hematocrit within normal limits. Platelets within normal limits. SUKHWINDER with creatinine of 1.10. BUN is elevated at 27. Anion gap is elevated 19.7. Coagulation studies within normal limits. Lactate is mildly elevated at 3. Lipase normal at 159. Urinalysis shows 3+ urine blood on dipstick, too numerous to count red blood cells on microscopy, 10-20 white blood cells on microscopy, nitrate negative, leukocyte esterase negative, 2+ urine bacteria. CT imaging is pending at this time. Patient's care was ultimately transferred to the oncoming physician, Dr. Aguirre, pending completion of her workup. <Yuriy Aguirre MD - Last Filed: 02/13/25 03:01> Vital Signs: 02/12/25 22:35 Temperature 98.2 F Temperature Source Oral Pulse Rate [Left] 95 H Respiratory Rate 20 Blood Pressure [Right Arm] 182/90 H Blood Pressure Mean [Right Arm] 120 Blood Pressure Source [Right Arm] Automatic Cuff Blood Pressure Position [Right Arm] Sitting 02 Sat by Pulse Oximetry 95 Oxygen Delivery Method Room Air Lab Data Lab Results 02/12/25 22:31: Urine Color Yellow, Urine Appearance Sl cloudy, Urine pH 6.5, Ur Specific [place] 1.020, Urine Protein Trace, Urine Glucose (UA) Negative, Urine Ketones 1+, Urine Blood 3+ A, Urine Nitrate Negative, Urine Bilirubin Negative, Urine Urobilinogen 0.2, Ur Leukocyte Esterase Trace, Urine RBC Tntc, Urine WBC 10-20, Ur Squamous Epith Cells 3-5, Calcium Oxalate Crystal Trace, Urine Bacteria 2+, Urine Mucus 1+ 02/12/25 22:35: WBC 15.8 H, RBC 4.72, Hgb 15.2, Hct 43.3, MCV 91.7, MCH 32.2 H, MCHC 35.1, RDW 12.2, Plt Count 252, MPV 10.8 H, Neut % (Auto) 79.1, Lymph % (Auto) 13.3, [place] % (Auto) 6.8, Eos % (Auto) 0.2, Baso % (Auto) 0.2, Neut # (Auto) 12.5 H, Lymph # (Auto) 2.1, [place] # (Auto) 1.1 H, Eos # (Auto) 0.0, Baso # (Auto) 0.0, PT 10.6, INR 0.95, Sodium 143, Potassium 3.7, Chloride 104, Carbon Dioxide 23, Anion Gap 19.7 H, BUN 27 H, Creatinine 1.10 H, Estimated Creat Clear 41, Estimated GFR 48 L, Est GFR ( Amer) 58 L, Glucose 158 H, Calcium 9.5, Total Bilirubin 0.6, AST 34, ALT 35, Alkaline Phosphatase 75, Total Protein 7.9, Albumin 4.9, Globulin 3.0, Albumin/Globulin Ratio 1.6, Lipase 159 02/12/25 22:50: Lactate 3.0 H 02/13/25 01:46: Urine Color Yellow, Urine Appearance Clear, Urine pH 8.0, Ur Specific [place] 1.010, Urine Protein Negative, Urine Glucose (UA) Negative, Urine Ketones 1+, Urine Blood 1+ A, Urine Nitrate Negative, Urine Bilirubin Negative, Urine Urobilinogen 0.2, Ur Leukocyte Esterase Negative, Urine RBC 10- 20, Urine WBC Occasional, Urine Bacteria Trace Orders (Tests/Meds): ED MEDICATIONS Generic Name Dose Route Start Last Admin Trade Name Freq PRN Reason Stop Dose Admin Oxycodone HCl 5 mg 02/13/25 02:49 Oxycodone 5mg Immediate Release Tablet PO 02/13/25 02:50 ONCE ONE Sodium Chloride 10 ml 02/12/25 23:26 02/12/25 23:27 Sodium Chloride 0.9% 10ml Syr (Rad Only) IV 03/14/25 23:25 10 ml NEEDED PRN Administration Maintain IV Site Tamsulosin HCl 0.4 mg 02/13/25 21:00 Tamsulosin 0.4mg Capsule PO 03/15/25 20:59 HS RENE Discontinued Medications Generic Name Dose Route Start Last Admin Trade Name Freq PRN Reason Stop Dose Admin Ceftriaxone Sodium 1 gm/ 50 mls @ 100 mls/hr 02/13/25 00:49 02/13/25 01:24 Sodium Chloride IV 02/13/25 01:18 100 mls/hr ONCE ONE Administration Iopamidol 75 ml 02/12/25 23:26 02/12/25 23:26 Iopamidol-370 (76%);100ml Bottle IV 02/12/25 23:27 75 ml ONCE ONE Administration Morphine Sulfate 4 mg 02/12/25 22:41 11/24/25 22:52 Morphine 4mg/Ml Syringe IV 02/12/25 22:42 4 mg ONCE ONE Administration Morphine Sulfate 4 mg 02/13/25 00:23 02/13/25 00:47 Morphine 4mg/Ml Syringe IV 02/13/25 00:24 4 mg ONCE ONE Administration Ondansetron HCl 4 mg 02/12/25 23:14 02/12/25 23:21 Ondansetron 4mg/2ml Vial IV 02/12/25 23:15 4 mg ONCE ONE Administration Ondansetron HCl 4 mg 02/13/25 00:45 02/13/25 00:47 Ondansetron 4mg/2ml Vial IV 02/13/25 00:46 4 mg ONCE ONE Administration ORDERS Category Date Time Status CT abdomen pelvis w con Stat Cat Scan 02/12/25 22:[address] abdomen pelvis wo con Stat Cat Scan 02/13/25 00:17 Completed CBC w/Auto Diff [Complete Blood Count Auto Diff] Stat Lab 02/12/25 22:35 Completed CMP [Comprehensive Metabolic Panel] Stat Lab 02/12/25 22:35 Completed Lactic Acid Stat Lab 02/12/25 22:50 Completed Lipase Stat Lab 02/12/25 22:35 Completed PT INR [Prothrombin Time INR] Stat Lab 02/12/25 22:35 Completed UA [Urinalysis and Microscopic] Stat Lab 02/12/25 22:31 Completed UA [Urinalysis and Microscopic] Stat Lab 02/13/25 01:46 Completed Blood Culture Stat Micro 02/13/25 00:41 Received Urine Culture Stat Micro 02/12/25 22:31 Received Medical Decision Narrative: Laina Rosario is a 74-year-old with a previous history of breast cancer status postmastectomy, tubal ligation who presents to the emergency department for complaints of hematuria and lower abdominal pain. Patient states that yesterday, she noticed blood in her urine but no pain with urination. Today, she started to have sharp, constant left lower quadrant abdominal pain. She states that the pain is not worse with urination. She denies any constipation, diarrhea, nausea or vomiting or chest pain. Patient states that nothing this is never happened before. On arrival, patient is hypertensive, borderline tachycardic, afebrile, oxygen saturation appropriate for room air. Physical exam, stated above, revealed nontoxic-appearing female who is uncomfortable. Cardiopulmonary exam without murmurs, rubs, wheezing, rales or rhonchi. She has some tenderness in the left lower quadrant with guarding but no peritonitis or rebound tenderness. Differential diagnosis includes, but is not limited to: Diverticulitis, ureterolithiasis, UTI/pyelonephritis, bowel obstruction, among others. The most morbid conditions were considered and workup was based on these. Workup in the Emergency Department included: CT abdomen pelvis with IV contrast, CBC with differential, CMP, urinalysis, lipase, lactic acid. Patient was initially treated with 4 mg of IV morphine. Patient did have some vomiting in the emergency department given 4 mg of IV Zofran. At this time, patient's workup shows leukocytosis with white blood cell count of 15.8, hemoglobin and hematocrit within normal limits. Platelets within normal limits. SUKHWINDER with creatinine of 1.10. BUN is elevated at 27. Anion gap is elevated 19.7. Coagulation studies within normal limits. Lactate is mildly elevated at 3. Lipase normal at 159. Urinalysis shows 3+ urine blood on dipstick, too numerous to count red blood cells on microscopy, 10-20 white blood cells on microscopy, nitrate negative, leukocyte esterase negative, 2+ urine bacteria. CT imaging is pending at this time. Patient's care was ultimately transferred to the oncoming physician, Dr. Aguirre, pending completion of her workup. Timothy WOODWARD: I assumed care of the patient at the time of handoff from the prior provider. On reassessment patient's pain is worsened, given additional pain meds and nausea meds. CT imaging was independently interpreted by me, I am concerned for possible ureteral or renal pelvis rupture given the volume of fluid surrounding the ureter. She has a 2 mm obstructing distal stone as well. I discussed the case with the radiologist and we repeated the CT scan Noncon which did indeed confirm contrast extravasation suggesting a renal calyceal rupture. I called and discussed the case with the [facility] urologist who reported that this is not an emergent condition and does not require transfer. He recommended repeating her urinalysis via cath urine to rule out infection. He specifically said that the patient could be discharged safely and follow-up with urology outpatient, and does not require any emergent intervention. Her repeat cath urinalysis is not consistent with infection. I had extensive and repeated discussion with patient and her family regarding her presentation and workup. They were agreeable to plan of discharge. Patient was discharged prescription for oxycodone, Zofran and tamsulosin. They will follow-up with their PCP tomorrow and with urology. Critical Care <Jefry Eastman MD - Last Filed: 02/12/25 23:32> Critical Care Time Critical Care Time: No
[2025-02-12 22:47] LABS: Microscopic, Urine URINE MICROSCOPIC (MICROSCOPIC)
[2025-02-12 22:48] LABS: Hematocrit 43.3 % (37.0-47.0); Hemoglobin 15.2 g/dL (12.2-16.2); Immature Granulocytes % 0.4 %; Mean Corpuscular HGB Conc 35.1 g/dL (31.8-35.4); Mean Corpuscular Hemoglobin 32.2 pg (27.0-31.2); Mean Corpuscular Volume 91.7 fl (81-99); Nucleated Red Blood Cells % 0 %; Platelet Count 252 K/mm3 (142-424); Red Blood Count 4.72 M/mm3 (4.20-5.40); Red Cell Distribution Width-SD 41.1 fL; White Blood Count 15.8 K/mm3 (4.8-10.8)
[2025-02-12 22:50] LABS: Bilirubin,Urine Negative (Negative); Color,Urine YELLOW (Yellow); Glucose,Urine (UA) Negative (Negative); Ketones,Urine 1+ (Negative); Leukocyte Esterase,Urine TRACE (Negative); PH,Urine 6.5 (5.0-8.5); Protein,Urine TRACE (Negative); Specific Gravity, Urine 1.020 (1.005-1.030); Urobilinogen,Urine 0.2 EU/dl (0.2)
[2025-02-12 22:51] LABS: Albumin Level 4.9 g/dl (3.5-5.0); Chloride 104 mmol/L (98-107); Potassium 3.7 mmoL/L (3.5-5.1); Sodium 143 mmol/L (136-145)
[2025-02-12] MEDS: MORPHINE 4MG/ML SYRINGE 4 MG IV (22:52)
[2025-02-12 22:53] LABS: INR 0.95 (0.9-1.1); Prothrombin Time 10.6 seconds (10.1-12.5)
[2025-02-12 22:54] LABS: Alanine Aminotransferase 35 U/L (12-78); Albumin/Globulin Ratio 1.6 (1.1-1.8); Alkaline Phosphatase 75 U/L (38-126); Anion Gap 19.7 mEq/L (5-15); Aspartate Amino Transferase 34 U/L (14-36); Bilirubin,Total 0.6 mg/dl (0.2-1.3); Blood Urea Nitrogen 27 mg/dl (7-17); Calcium 9.5 mg/dl (8.4-10.2); Carbon Dioxide 23 mmol/L (22.0-30.0); Creatinine Clearance Estimated 41 mL/min (50-200); Creatinine,Serum 1.10 mg/dl (0.52-1.04); Estimated Glomerular Filt Rate 48 ml/min (>60); GFR (African American) 58 ML/MIN (>60); Globulin 3.0 g/dL (1.3-3.2); Glucose 158 mg/dl (74-100); Lipase 159 U/L (23-300); Total Protein,Serum 7.9 g/dl (6.3-8.2)
[2025-02-12 23:01] LABS: Bacteria,Urine 2+ /lpf; Calcium Oxalate Crystals,Urine Trace /lpf; Mucus,Urine 1+ /lpf; RBC,Urine TNTC #/hpf (0-3)
[2025-02-12] MEDS: ONDANSETRON 4MG/2ML VIAL 4 MG IV (23:21)
[2025-02-12] MEDS: IOPAMIDOL-370 (76%);100ML BOTTLE 75 ML IV (23:26)
[2025-02-12] MEDS: SODIUM CHLORIDE 0.9% 10ML SYR (RAD ONLY) 10 ML IV (23:27)
--- NOTE | 2025-02-13 00:17 | CT_ITS ---
PROCEDURE INFORMATION: Exam: CT Abdomen And Pelvis Without Contrast Exam date and time: 02/13/2025 12:25 AM Age: 74 years old Clinical indication: Abdominal pain; Additional info: Possible ureteral rupture TECHNIQUE: Imaging protocol: Computed tomography of the abdomen and pelvis without contrast. Radiation optimization: All CT scans at this facility use at least one of these dose optimization techniques: automated exposure control; mA and/or kV adjustment per patient size (includes targeted exams where dose is matched to clinical indication); or iterative reconstruction. COMPARISON: CT ABDOMEN PELVIS W CON 02/12/2025 11:20 PM FINDINGS: Lungs: No acute finding. Diaphragm: A small hiatal hernia is present. Liver: Fatty steatosis is noted. Gallbladder and biliary ducts: Normal. No calcified stones. No ductal dilation. Pancreas: Normal. No ductal dilation. Spleen: Normal. No splenomegaly. Adrenal glands: Normal. No mass. Kidneys and ureters: Images obtained approximately 1 hour after the enhanced study demonstrate extravasation of contrast from the upper collecting system likely due to calyx forniceal rupture. The left renal pelvis and ureter are intact. Contrast does extend into the anterior perinephric space and directly into the anterior pararenal space likely due to a defect in the fascia in this region. The distal left ureteral calculus is obscured due to the contrast. There are a few foci of retained cortical contrast noted within the right kidney. The right renal collecting system and ureter are unremarkable. Stomach and bowel: Sigmoid diverticulosis.. No obstruction. No mucosal thickening. Appendix: No evidence of appendicitis. Intraperitoneal space: Unremarkable. No free air. No significant fluid collection. Vasculature: Unremarkable. No abdominal aortic aneurysm. Lymph nodes: Unremarkable. No enlarged lymph nodes. Urinary bladder: The urinary bladder distends with contrast and is normal. Reproductive: Unremarkable as visualized. Bones/joints: Degenerative changes at L5-S1.. No acute fracture. Soft tissues: Unremarkable. IMPRESSION: Delayed images demonstrate extravasation of contrast from the upper collecting system of the left kidney likely due to calyx forniceal rupture. Contrast extends into the perinephric and anterior pararenal space likely due to a defect in the fascial plane between the 2 spaces. The left renal pelvis and ureter are intact. Other findings are stable.
[2025-02-13] MEDS: ONDANSETRON 4MG/2ML VIAL 4 MG IV (00:47)
[2025-02-13] MEDS: MORPHINE 4MG/ML SYRINGE 4 MG IV (00:47)
--- NOTE | 2025-02-13 00:52 | PC.NURSE ---
spoke with transfer center. awaiting a call back at this time.
[2025-02-13] MEDS: CEFTRIAXONE 1 GM 1 GM in 0.9 % SODIUM CHLORIDE 50 ML IV (01:24)
[2025-02-13 01:51] LABS: Microscopic, Urine URINE MICROSCOPIC (MICROSCOPIC)
[2025-02-13 02:06] LABS: Bilirubin,Urine Negative (Negative); Color,Urine YELLOW (Yellow); Glucose,Urine (UA) Negative (Negative); Ketones,Urine 1+ (Negative); Leukocyte Esterase,Urine Negative (Negative); PH,Urine 8.0 (5.0-8.5); Protein,Urine Negative (Negative); Specific Gravity, Urine 1.010 (1.005-1.030); Urobilinogen,Urine 0.2 EU/dl (0.2)
[2025-02-13 02:15] LABS: Bacteria,Urine Trace /lpf; WBC,Urine Occasional #/hpf (0-3)
[2025-02-13 02:55] LABS: Reflex Lactic Add Lactic Reflex
[2025-02-13] MEDS: TAMSULOSIN 0.4MG CAPSULE 0.4 MG PO (02:55)
[2025-02-13] MEDS: OXYCODONE 5MG IMMEDIATE RELEASE TABLET 5 MG PO (02:55)
[2025-02-13 03:04] VITALS: BP 157/78; PULSE 88; RESP 20; TEMP 36.6; O2SAT 98
--- NOTE | 2025-02-13 03:06 | PC.NURSE ---
IV discontinued. Catheter tip intact. Bleeding controlled.
== END 2025-02-13 03:06 | disposition home or self-care (01) ==
PROVIDERS: Emergency Medicine; Emergency Provider Student in an Organized Health Care Education/Training Program; PCP Family Medicine
DX: N13.0 Hydronephrosis with ureteropelvic junction obstruction (principal); R10.32 Left lower quadrant pain; R10.A2 Flank pain, left side; N28.89 Other specified disorders of kidney and ureter; R74.02 Elevation of levels of lactic acid dehydrogenase [LDH]
CPT/HCPCS: 74176; 74177; 80053; 81001; 83605; 83690; 85025; 85610; 87040; 87086; 96365; 96375; 96376; 99285; J0696; J2270; J2405; Q9967